=== PATIENT | male | born 1945 | race Caucasian/White ===

== ENCOUNTER 2017-12-16 09:33 | Emergency (ER) | payer MEDICAID ==
[~2017-12-16] VITALS: Ht 170.2 cm; Wt 81.6 kg
[2017-12-16 09:45] VITALS: BP_SYST 154
[2017-12-16 11:06] VITALS: BP_SYST 118
== END 2017-12-16 11:06 | disposition home or self-care (01) ==
LOC: SED 09:33
DX: F07.81 Postconcussional syndrome (principal); I10 Essential (primary) hypertension; M10.9 Gout, unspecified
CPT/HCPCS: 70450-TC; 72220-TC; 99284